=== PATIENT | female | born 1985 | race Caucasian/White ===

== ENCOUNTER 2021-12-21 10:04 | Emergency (ER) | payer SELFPAY ==
[2021-12-21 10:26] VITALS: O2SAT 96
--- NOTE | 2021-12-21 10:50 | XRAY ---
Indication: Right calf pain. Two-dimensional sonogram and color Doppler imaging of the major venous vessels of the right leg performed. Comparison: None No thrombus seen in the examined deep venous vessels of the right leg including greater saphenous vein. Veins demonstrate normal compressibility. Venous waveforms are normal with and without augmentation. Impression: Right leg negative for DVT.
--- NOTE | 2021-12-21 10:57 | ERPHSYRPT ---
- History of Present Illness Time Seen by Provider: 12/21/21 10:15 Source: patient Exam Limitations: no limitations Patient Subjective Stated Complaint: right lower leg pain with a hematoma to the back medial calf Triage Nursing Assessment: Pt c/o of right lower leg pain that has a hematoma to the back medial calf that pt noticed today but did notice stiffness yesterday, pt's mother has a hx of a blood clotting disorder and pt had a blood clot after a , pulses normal in right leg, rates pain asa 5/10, vitals wnl, denies any other issues at this time Physician History: Patient is a 36-year-old white female who presents with a complaint of a painful bruised appearing area and the proximal posterior leg on the right. She has a history of blood clots in 2018 following a . She was treated with L ovenox at that time. She denies any fever chills sweats etc. she denies any shortness of breath or pain Timing/Duration: today Activities at Onset: none Quality: throbbing Location: other (Right leg posterior calf) Severity of Pain-Max: mild Severity of Pain-Current: mild Nitro Today/Relief: no nitro taken today Aspirin Treatment Today: no aspirin today Allergies/Adverse Reactions: cefaclor [From Ceclor] Allergy (Verified 12/21/21 10:26) Home Medications: No Reportable Medications [No Reported Medications] 12/21/21 [History] Travel Risk - International Travel Have you traveled outside of the country in past 3 weeks: No - Coronavirus Screening Are you exhibiting any of the following symptoms?: No Close contact with a COVID-19 positive Pt in past 14-21 Days: No - Vaccine Status Have you recieved a Covid-19 vaccination: No - Review of Systems Constitutional: No Fever, No Chills Eyes: No Symptoms Ears, Nose, & Throat: No Symptoms Respiratory: No Cough, No Dyspnea Cardiac: No Chest Pain, No Edema, No Syncope Abdominal/Gastrointestinal: No Abdominal Pain, No Nausea, No Vomiting, No Diarrhea Genitourinary Symptoms: No Dysuria Musculoskeletal: No Back Pain, No Neck Pain Skin: Other (There is an ecchymotic area proximal right leg posteriorly which is tender does not feel warm there is no's sign of erythema), No Rash Neurological: No Dizziness, No Focal Weakness, No Sensory Changes Psychological: No Symptoms Endocrine: No Symptoms All Other Systems: Reviewed and Negative - Past Medical History Pertinent Past Medical History: Yes Cardiac History: Deep Vein Thrombosis Female Reproductive Disorders: No Pertinent History Other Medical History: pcos - Past Surgical History Past Surgical History: Yes Female Surgical History: Section - Social History Smoking Status: Never smoker Exposure to second hand smoke: No Drug Use: none Patient Lives Alone: No - Female History Hx Now: No - Nursing Vital Signs Nursing Vital Signs: Initial Vital Signs Temperature 97.9 F 12/21/21 10:09 Pulse Rate 83 12/21/21 10:09 Blood Pressure 131/107 12/21/21 10:09 O2 Sat by Pulse Oximetry 96 12/21/21 10:09 Pain Scale Pain Intensity 5 - Physical Exam General Appearance: no apparent distress, alert Eye Exam: PERRL/EOMI, eyes nml inspection Ears, Nose, Throat Exam: normal ENT inspection, moist mucous membranes Neck Exam: normal inspection, non-tender, supple Respiratory Exam: normal breath sounds, lungs clear, No respiratory distress Cardiovascular Exam: regular rate/rhythm, normal heart sounds, No edema Gastrointestinal/Abdomen Exam: soft, No tenderness, No mass Back Exam: normal inspection, No CVA tenderness, No vertebral tenderness Extremity Exam: limited range of motion, other (There is tenderness ecchymoses and swelling right leg proximal posterior area tenderness no erythema no heat), No phylicia's sign Neurologic Exam: alert, oriented x 3, cooperative, normal mood/affect, nml cerebellar function, sensation nml, No motor deficits Skin Exam: normal color, warm, dry Lymphatic Exam: No adenopathy SpO2: 96 - Course Nursing assessment & vital signs reviewed: Yes - Radiology Ultrasound Exam Venous Lower Extremity Ultrasound: Other (Doppler of the right lower extremity venous system showed no evidence of clot) Ordered Tests: Active Orders 24 hr Category Date Time Status VENOUS UNILAT/LIMITED EXTREMIT [US] Stat Exams 12/21/21 10:13 Completed CBC W DIFF Stat Lab 12/21/21 10:40 Completed CK-Creatinine Phosphokinase Stat Lab 12/21/21 10:40 Completed D-DIMER QUANTITATIVE Stat Lab 12/21/21 10:40 Completed PROTIME WITH INR Stat Lab 12/21/21 10:40 Completed PTT Stat Lab 12/21/21 10:40 Completed Lab/Rad Data: Laboratory Result Diagrams 12/21/21 10:40 Laboratory Results 12/21/21 12/21/21 12/21/21 Range/Units 10:40 10:40 10:40 WBC 7.9 (4.0-10.5) K/mm3 RBC 4.52 (4.1-5.4) M/mm3 Hgb 12.8 (12.0-16.0) gm/dl Hct 39.9 (35-47) % MCV 88.3 (78-100) fl MCH 28.3 (26-32) pg MCHC 32.1 (32-36) g/dl RDW 13.8 (11.5-14.0) % Plt Count 315 (150-450) K/mm3 MPV 8.8 (7.5-11.0) fl Gran % 60.6 (36.0-66.0) % Eos # (Auto) 0.43 (0-0.5) Absolute Lymphs (auto) 2.10 (1.0-4.6) Absolute Monos (auto) 0.54 (0.0-1.3) Lymphocytes % 26.7 (24.0-44.0) % Monocytes % 6.9 (0.0-12.0) % Eosinophils % 5.5 H (0.00-5.0) % Basophils % 0.3 (0.0-0.4) % Absolute Granulocytes 4.77 (1.4-6.9) Basophils # 0.02 (0-0.4) PT 11.8 (9.4-12.5) SECONDS INR 1.00 (0.8-3.0) APTT 25.5 (25.1-36.5) SECONDS D-Dimer 392 (215-500) ng/mL Creatine Kinase 48 (30-135) U/L - Progress Progress: unchanged Air Movement: good Blood Culture(s) Obtained: No Antibiotics given: No - Departure Departure Disposition: Home Clinical Impression: Hematoma Condition: Stable Critical Care Time: No Instructions: Contusion (DC)
[2021-12-21 11:01] LABS: Absolute Neutrophil Ct (ANC) 4.77 (1.4-6.9); Basophil (Absolute #) 0.02 (0-0.4); Eosinophil % 5.5 % (0.00-5.0); Eosinophil (Absolute #) 0.43 (0-0.5); Hematocrit 39.9 % (35-47); Hemoglobin 12.8 gm/dl (12.0-16.0); Lymphocytes % 26.7 % (24.0-44.0); Mean Cell Volume 88.3 fl (78-100); Mean Corpuscular Hemoglobin 28.3 pg (26-32); Mean Corpuscular Hgb Concent. 32.1 g/dl (32-36); Mean Platelet Volume 8.8 fl (7.5-11.0); Monocyte (Absolute #) 0.54 (0.0-1.3); Monocytes % 6.9 % (0.0-12.0); Neutrophil % 60.6 % (36.0-66.0); Platelet Count 315 K/mm3 (150-450); Red Blood Count 4.52 M/mm3 (4.1-5.4); Red Cell Distribution Width 13.8 % (11.5-14.0); White Blood Count 7.9 K/mm3 (4.0-10.5)
[2021-12-21 11:09] LABS: PROTIME 11.8 SECONDS (9.4-12.5)
[2021-12-21 11:10] VITALS: BP 117/61; PULSE 70
[2021-12-21 11:12] LABS: PTT 25.5 SECONDS (25.1-36.5)
== END 2021-12-21 11:34 | disposition home or self-care (01) ==
LOC: ED 10:04
DX: S80.11XA Contusion of right lower leg, initial encounter (principal); Z86.718 Personal history of other venous thrombosis and embolism
CPT/HCPCS: 36415; 82550; 85025; 85379; 85610; 85730; 93971; 99283

== ENCOUNTER 2022-01-28 08:04 | Emergency (ER) | payer MEDICAID ==
[2022-01-28] MEDS ORDERED: Sodium Chloride 0.9% 1000 ML 1,000 ML IV SCH (08:30)
[2022-01-28] MEDS ORDERED: Sodium Chloride 0.9% 1000 ML 1,000 ML ONE (08:35)
[2022-01-28 08:45] LABS: Appearance CLEAR (CLEAR); Bacteria RARE /HPF (NEGATIVE); Bilirubin NEGATIVE (NEGATIVE); Blood LARGE Ery/ul (0-5); Epithelial Cells RARE /HPF (FEW); Glucose NEGATIVE (NEGATIVE); Ketones NEGATIVE (NEGATIVE); Leukocyte Esterase TRACE (NEGATIVE); Nitrite NEGATIVE (NEGATIVE); Protein,Urine Dip NEGATIVE (Negative); Specific Gravity 1.002 (1.005-1.025); Urobilinogen NEGATIVE mg/dL (0-1)
[2022-01-28 08:47] LABS: Absolute Neutrophil Ct (ANC) 3.72 (1.4-6.9); Basophil (Absolute #) 0.02 (0-0.4); Eosinophil % 4.7 % (0.00-5.0); Eosinophil (Absolute #) 0.33 (0-0.5); Hematocrit 39.1 % (35-47); Hemoglobin 12.5 gm/dl (12.0-16.0); Lymphocytes % 31.4 % (24.0-44.0); Mean Cell Volume 87.3 fl (78-100); Mean Corpuscular Hemoglobin 27.9 pg (26-32); Mean Platelet Volume 8.9 fl (7.5-11.0); Monocyte (Absolute #) 0.73 (0.0-1.3); Monocytes % 10.4 % (0.0-12.0); Neutrophil % 53.2 % (36.0-66.0); Platelet Count 352 K/mm3 (150-450); Red Blood Count 4.48 M/mm3 (4.1-5.4); Red Cell Distribution Width 13.7 % (11.5-14.0)
[2022-01-28 08:47] LABS: INR 1.02 (0.8-3.0)
[2022-01-28] MEDS ORDERED: Ativan 2 MG/1 ML VIAL IV ONE (08:52)
[2022-01-28] MEDS ORDERED: Ativan 2 MG/1 ML VIAL ONE (08:53)
[2022-01-28 09:00] LABS: ALBUMIN 4.3 g/dL (3.5-5.0); ALKALINE PHOSPHATASE 94 U/L (38-126); AMYLASE 33 U/L (30-110); ANION GAP 12.7 MEQ/L (5-15); BLOOD UREA NITROGEN 14 mg/dL (7-17); CHLORIDE 107 mmol/L (98-107); Calcium 9.6 mg/dL (8.4-10.2); Carbon Dioxide 23 mmol/L (22-30); Creatinine 1 0.54 mg/dL (0.52-1.04); EST GLOMERULAR FILTRATION RATE > 60.0 ML/MIN; Glucose 78 mg/dL (74-106); LIPASE 175 U/L (23-300); MAGNESIUM 1.8 mg/dL (1.6-2.3); NT PRO BNP 56.7 pg/mL (0-450); Potassium 4.1 mmol/L (3.5-5.1); SGOT/AST 25 U/L (14-36); SGPT/ALT 21 U/L (0-35); SODIUM 138 mmol/L (137-145); Total Protein 7.3 g/dL (6.3-8.2)
--- NOTE | 2022-01-28 09:02 | ERPHSYRPT ---
- History of Present Illness Time Seen by Provider: 01/28/22 08:25 Historian: patient Exam Limitations: no limitations Patient Subjective Stated Complaint: Pt states "I started to have left arm pain on friday and now the pain is in my left chest and back." Triage Nursing Assessment: Pt presented extremely anxious, tachypneic, crying. PT ambulates with an upright steady gait, able to speak in clear full sentences pt was able to calm with guided imagery and breathing exercises. Physician History: Patient is a 36-year-old female who presents with a complaint of left-sided chest pain for a couple of days on and off. Pain radiates at times to the left arm left jaw anterior to the back. Is associated with some shortness of breath and nausea and she says she has been diaphoretic at times. She has risk factors which primarily involves her family. Apparently the females in the family have a high incidence of cerebrovascular and cardiac disease. The patient herself has polycystic ovary syndrome and insulin resistance. She does admit to a high degree of anxiety associated with her oldest son who is autistic she is a new single mother and she has recently had a promotion at her job. Timing/Duration: yesterday Activities at Onset: none Quality: stabbing Location: substernal Chest Pain Radiation: jaw, arm Severity of Pain-Max: severe Severity of Pain-Current: mild Modifying Factors: Improves With: breathing Associated Symptoms: nausea, shortness of breath, hurts to breathe, diaphoresis Prior Chest Pain/Cardiac Workup: no prior cardiac workup Nitro Today/Relief: no nitro taken today Aspirin Treatment Today: no aspirin today Allergies/Adverse Reactions: cefaclor [From Ceclor] Allergy (Verified 12/21/21 10:26) Hx Tetanus, Diphtheria Vaccination/Date Given: No Hx Influenza Vaccination/Date Given: No Hx Pneumococcal Vaccination/Date Given: No Immunizations Up to Date: Yes Travel Risk - International Travel Have you traveled outside of the country in past 3 weeks: No - Coronavirus Screening Are you exhibiting any of the following symptoms?: No Close contact with a COVID-19 positive Pt in past 14-21 Days: No - Vaccine Status Have you recieved a Covid-19 vaccination: No - Review of Systems Constitutional: No Fever, No Chills Eyes: No Symptoms Ears, Nose, & Throat: No Symptoms Respiratory: Dyspnea, No Cough Cardiac: Chest Pain, No Edema, No Syncope Abdominal/Gastrointestinal: Nausea, No Abdominal Pain, No Vomiting, No Diarrhea Genitourinary Symptoms: No Dysuria Musculoskeletal: No Back Pain, No Neck Pain Skin: No Rash Neurological: No Dizziness, No Focal Weakness, No Sensory Changes Psychological: No Symptoms Endocrine: No Symptoms All Other Systems: Reviewed and Negative - Past Medical History Pertinent Past Medical History: Yes Cardiac History: Deep Vein Thrombosis Female Reproductive Disorders: No Pertinent History Other Medical History: pcos - Past Surgical History Past Surgical History: Yes Female Surgical History: Section - Social History Smoking Status: Never smoker Exposure to second hand smoke: Yes Drug Use: none Patient Lives Alone: No - Female History Hx Last Menstrual Period: 01/28/2022 Hx Now: No - Nursing Vital Signs Nursing Vital Signs: Initial Vital Signs Temperature 98.0 F 01/28/22 08:21 Pulse Rate 83 01/28/22 08:21 Respiratory Rate 28 H 01/28/22 08:21 Blood Pressure 149/96 01/28/22 08:21 O2 Sat by Pulse Oximetry 100 01/28/22 08:21 Pain Scale Pain Intensity 0 - Physical Exam General Appearance: moderate distress (Anxiety) Eye Exam: PERRL/EOMI, eyes nml inspection Ears, Nose, Throat Exam: normal ENT inspection, moist mucous membranes Neck Exam: normal inspection, non-tender, supple, full range of motion Respiratory Exam: normal breath sounds, lungs clear, No respiratory distress Cardiovascular Exam: regular rate/rhythm, normal heart sounds Gastrointestinal/Abdomen Exam: soft, No tenderness, No mass Back Exam: normal inspection, No CVA tenderness, No vertebral tenderness Extremity Exam: normal inspection, normal range of motion Neurologic Exam: alert, oriented x 3, cooperative, normal mood/affect, sensation nml, other (Marked anxiety and hyperventilation), No motor deficits Skin Exam: normal color, warm, dry SpO2 Interpretation: normal SpO2: 100 O2 Delivery: Room Air - Course Nursing assessment & vital signs reviewed: Yes EKG Interpreted by Me: RATE (80), Sinus Rhythm, NORMAL AXIS, NORMAL INTERVALS, NORMAL QRS, NORMAL ST-T - Radiology Exams Chest X-ray Interpretation: Negative Ordered Tests: Active Orders 24 hr Category Date Time Status EKG-ER Only STAT Care 01/28/22 08:23 Active IV Insertion STAT Care 01/28/22 08:23 Active CHEST 1 VIEW (PORTABLE) Stat Exams 01/28/22 08:27 Completed AMYLASE Stat Lab 01/28/22 08:35 Completed CBC W DIFF Stat Lab 01/28/22 08:25 Completed CMP Stat Lab 01/28/22 08:35 Completed CULTURE,URINE Stat Lab 01/28/22 08:35 Received D-DIMER QUANTITATIVE Stat Lab 01/28/22 08:35 Completed LIPASE Stat Lab 01/28/22 08:35 Completed Lactic Acid Stat Lab 01/28/22 08:35 Completed MAGNESIUM Stat Lab 01/28/22 08:35 Completed NT PRO BNP Stat Lab 01/28/22 08:35 Completed PROTIME WITH INR Stat Lab 01/28/22 08:35 Completed TROPONIN Q3H Lab 01/28/22 08:35 Completed TROPONIN Q3H Lab 01/28/22 11:30 Ordered TROPONIN Q3H Lab 01/28/22 14:30 Ordered TROPONIN Q3H Lab 01/28/22 17:30 Ordered TROPONIN Q3H Lab 01/28/22 20:30 Ordered UA W/RFX UR CULTURE Stat Lab 01/28/22 08:35 Completed Medication Summary Generic Name Dose Route Start Last Admin Trade Name Freq PRN Reason Stop Dose Admin Sodium Chloride 1,000 mls @ 100 mls/hr 01/28/22 08:30 01/28/22 08:37 Sodium Chloride 0.9% 1000 Ml IV 02/27/22 08:29 100 mls/hr .Q10H STEFFANY Administration Discontinued Medications Generic Name Dose Route Start Last Admin Trade Name Freq PRN Reason Stop Dose Admin Lorazepam 1 mg 01/28/22 08:52 01/28/22 09:07 Lorazepam 2 Mg/1 Ml 2 Mg Vial IV 01/28/22 08:53 1 mg STAT ONE Administration Lorazepam Confirm 01/28/22 08:53 Lorazepam 2 Mg/1 Ml 2 Mg Vial Administered 01/28/22 08:54 Dose 2 mg .ROUTE .STK-MED ONE Lab/Rad Data: Laboratory Result Diagrams 01/28/22 08:25 01/28/22 08:35 Laboratory Results 01/28/22 01/28/22 01/28/22 Range/Units 08:35 08:35 08:35 WBC (4.0-10.5) K/mm3 RBC (4.1-5.4) M/mm3 Hgb (12.0-16.0) gm/dl Hct (35-47) % MCV (78-100) fl MCH (26-32) pg MCHC (32-36) g/dl RDW (11.5-14.0) % Plt Count (150-450) K/mm3 MPV (7.5-11.0) fl Gran % (36.0-66.0) % Eos # (Auto) (0-0.5) Absolute Lymphs (auto) (1.0-4.6) Absolute Monos (auto) (0.0-1.3) Lymphocytes % (24.0-44.0) % Monocytes % (0.0-12.0) % Eosinophils % (0.00-5.0) % Basophils % (0.0-0.4) % Absolute Granulocytes (1.4-6.9) Basophils # (0-0.4) PT 12.0 (9.4-12.5) SECONDS INR 1.02 (0.8-3.0) D-Dimer 249 (215-500) ng/mL Sodium (137-145) mmol/L Potassium (3.5-5.1) mmol/L Chloride (98-107) mmol/L Carbon Dioxide (22-30) mmol/L Anion Gap (5-15) MEQ/L BUN (7-17) mg/dL Creatinine (0.52-1.04) mg/dL Estimated GFR ML/MIN Glucose (74-106) mg/dL Lactic Acid (0.4-2.0) Calcium (8.4-10.2) mg/dL Magnesium (1.6-2.3) mg/dL Total Bilirubin (0.2-1.3) mg/dL AST (14-36) U/L ALT (0-35) U/L Alkaline Phosphatase (38-126) U/L Troponin I 0.014 (0.000-0.034) ng/mL NT-Pro-B Natriuret Pep (0-450) pg/mL Serum Total Protein (6.3-8.2) g/dL Albumin (3.5-5.0) g/dL Amylase (30-110) U/L Lipase (23-300) U/L Urine Color STRAW (YELLOW) Urine Appearance CLEAR (CLEAR) Urine pH 7.0 (5-6) Ur Specific Jay 1.002 (1.005-1.025) Urine Protein NEGATIVE (Negative) Urine Ketones NEGATIVE (NEGATIVE) Urine Blood LARGE (0-5) Jonathan/ul Urine Nitrite NEGATIVE (NEGATIVE) Urine Bilirubin NEGATIVE (NEGATIVE) Urine Urobilinogen NEGATIVE (0-1) mg/dL Ur Leukocyte Esterase TRACE (NEGATIVE) Urine WBC (Auto) NONE (0-5) /HPF Urine RBC (Auto) NONE (0-2) /HPF U Epithel Cells (Auto) RARE (FEW) /HPF Urine Bacteria (Auto) RARE (NEGATIVE) /HPF Urine Culture Reflexed YES (NO) Urine Glucose NEGATIVE (NEGATIVE) mg/dL 01/28/22 01/28/22 01/28/22 Range/Units 08:35 08:35 08:25 WBC 7.0 (4.0-10.5) K/mm3 RBC 4.48 (4.1-5.4) M/mm3 Hgb 12.5 (12.0-16.0) gm/dl Hct 39.1 (35-47) % MCV 87.3 (78-100) fl MCH 27.9 (26-32) pg MCHC 32.0 (32-36) g/dl RDW 13.7 (11.5-14.0) % Plt Count 352 (150-450) K/mm3 MPV 8.9 (7.5-11.0) fl Gran % 53.2 (36.0-66.0) % Eos # (Auto) 0.33 (0-0.5) Absolute Lymphs (auto) 2.20 (1.0-4.6) Absolute Monos (auto) 0.73 (0.0-1.3) Lymphocytes % 31.4 (24.0-44.0) % Monocytes % 10.4 (0.0-12.0) % Eosinophils % 4.7 (0.00-5.0) % Basophils % 0.3 (0.0-0.4) % Absolute Granulocytes 3.72 (1.4-6.9) Basophils # 0.02 (0-0.4) PT (9.4-12.5) SECONDS INR (0.8-3.0) D-Dimer (215-500) ng/mL Sodium 138 (137-145) mmol/L Potassium 4.1 (3.5-5.1) mmol/L Chloride 107 (98-107) mmol/L Carbon Dioxide 23 (22-30) mmol/L Anion Gap 12.7 (5-15) MEQ/L BUN 14 (7-17) mg/dL Creatinine 0.54 (0.52-1.04) mg/dL Estimated GFR > 60.0 ML/MIN Glucose 78 (74-106) mg/dL Lactic Acid 1.0 (0.4-2.0) Calcium 9.6 (8.4-10.2) mg/dL Magnesium 1.8 (1.6-2.3) mg/dL Total Bilirubin 0.50 (0.2-1.3) mg/dL AST 25 (14-36) U/L ALT 21 (0-35) U/L Alkaline Phosphatase 94 (38-126) U/L Troponin I (0.000-0.034) ng/mL NT-Pro-B Natriuret Pep 56.7 (0-450) pg/mL Serum Total Protein 7.3 (6.3-8.2) g/dL Albumin 4.3 (3.5-5.0) g/dL Amylase 33 (30-110) U/L Lipase 175 (23-300) U/L Urine Color (YELLOW) Urine Appearance (CLEAR) Urine pH (5-6) Ur Specific Jay (1.005-1.025) Urine Protein (Negative) Urine Ketones (NEGATIVE) Urine Blood (0-5) Jonathan/ul Urine Nitrite (NEGATIVE) Urine Bilirubin (NEGATIVE) Urine Urobilinogen (0-1) mg/dL Ur Leukocyte Esterase (NEGATIVE) Urine WBC (Auto) (0-5) /HPF Urine RBC (Auto) (0-2) /HPF U Epithel Cells (Auto) (FEW) /HPF Urine Bacteria (Auto) (NEGATIVE) /HPF Urine Culture Reflexed (NO) Urine Glucose (NEGATIVE) mg/dL - Progress Progress: improved Air Movement: good Blood Culture(s) Obtained: No Antibiotics given: No - Departure Departure Disposition: Home Clinical Impression: Anxiety Condition: Stable Critical Care Time: No Referrals: DOCTOR,NO FAMILY [Primary Care Provider] - Follow up/PCP as directed Instructions: Anxiety, Adult (DC) Prescriptions: ALPRAZolam 1 MG [Xanax 1 mg] 0.5 mg PO TID PRN 10 Days #30 tablet PRN Reason: Anxiety
--- NOTE | 2022-01-28 09:17 | XRAY ---
Indication: Chest pain. Comparison: None Portable apical lordotic chest demonstrates normal heart, lungs, and bony thorax with a few incidental tiny calcified granulomas.
[2022-01-28 10:09] VITALS: BP 118/80; PULSE 78
[2022-01-28 10:15] VITALS: O2SAT 100
== END 2022-01-28 10:25 | disposition home or self-care (01) ==
LOC: ED 08:04
DX: F41.9 Anxiety disorder, unspecified (principal); R07.89 Other chest pain; R06.02 Shortness of breath; R11.0 Nausea; Z63.6 Dependent relative needing care at home; Z56.1 Change of job; Z86.718 Personal history of other venous thrombosis and embolism; E28.2 Polycystic ovarian syndrome; Z79.899 Other long term (current) drug therapy
CPT/HCPCS: 36000; 36415; 71045; 80053; 81001; 82150; 83605; 83690; 83735; 83880; 84484; 85025; 85379; 85610; 87086; 93005; 96374; 99284; J2060

== ENCOUNTER 2022-10-06 09:32 | Emergency (ER) | payer OTHER ==
[2022-10-06 09:59] VITALS: BP 132/91; PULSE 78; O2SAT 96
[2022-10-06] MEDS ORDERED: Rocephin 1000 MG INJ IM ONE (10:01)
--- NOTE | 2022-10-06 10:06 | ERPHSYRPT ---
- History of Present Illness Time Seen by Provider: 10/06/22 10:02 Source: patient Exam Limitations: no limitations Patient Subjective Stated Complaint: Toothache Triage Nursing Assessment: Patient ambulated back to ED and transferred self to bed. Patient A+O X3. Patient's skin pink, warm and dry. Patient complains of right lower dental pain that started last night. Patient complains of pain 8/10. Right lower back tooth noted to be decayed with red and swollen gums. Physician History: Patient complains of right lower dental pain that started last night. Patient complains of pain 8/10. Right lower back tooth noted to be decayed with red and swollen gums. Timing/Duration: yesterday Severity: moderate Associated Symptoms: denies symptoms Allergies/Adverse Reactions: cefaclor [From [facility]] Allergy (Verified 10/06/22 09:50) Hx Tetanus, Diphtheria Vaccination/Date Given: No Hx Influenza Vaccination/Date Given: No Hx Pneumococcal Vaccination/Date Given: No Immunizations Up to Date: Yes Travel Risk - International Travel Have you traveled outside of the country in past 3 weeks: No - Coronavirus Screening Are you exhibiting any of the following symptoms?: No Close contact with a COVID-19 positive Pt in past 14-21 Days: No - Vaccine Status Have you recieved a Covid-19 vaccination: No - Review of Systems Constitutional: No Symptoms Eyes: No Symptoms Ears, Nose, & Throat: Loose Teeth Respiratory: No Symptoms Cardiac: No Symptoms Abdominal/Gastrointestinal: No Symptoms Genitourinary Symptoms: No Symptoms Musculoskeletal: No Symptoms Skin: No Symptoms Neurological: No Symptoms Psychological: No Symptoms Endocrine: No Symptoms Hematologic/Lymphatic: No Symptoms Immunological/Allergic: No Symptoms - Past Medical History Pertinent Past Medical History: Yes Cardiac History: Deep Vein Thrombosis Psycho-Social History: Anxiety Female Reproductive Disorders: No Pertinent History Other Medical History: pcos - Past Surgical History Past Surgical History: Yes Female Surgical History: Section - Social History Smoking Status: Never smoker Exposure to second hand smoke: No Drug Use: none Patient Lives Alone: No - Female History Hx Last Menstrual Period: last week Hx Now: No - Nursing Vital Signs Nursing Vital Signs: Initial Vital Signs Temperature 98.0 F 10/06/22 09:50 Pulse Rate 78 10/06/22 09:50 Respiratory Rate 18 10/06/22 09:50 Blood Pressure 132/91 10/06/22 09:50 O2 Sat by Pulse Oximetry 96 10/06/22 09:50 Pain Scale Pain Intensity 8 - Physical Exam General Appearance: no apparent distress Eye Exam: PERRL/EOMI Ears, Nose, Throat Exam: other (right lower molar abscess) Neck Exam: normal inspection Respiratory Exam: normal breath sounds Cardiovascular Exam: regular rate/rhythm Gastrointestinal/Abdomen Exam: soft SpO2: 96 - Course Nursing assessment & vital signs reviewed: Yes - Progress Progress: unchanged Counseled pt/family regarding: diagnosis, need for follow-up (with Dentist) - Departure Departure Disposition: Home Clinical Impression: Dental abscess Condition: Stable Critical Care Time: No Referrals: TACHO ROCK [Primary Care Provider] - Follow up/PCP as directed Instructions: Tooth Decay, Adult (DC), Tooth Abscess (DC) Additional Instructions: Discharge/Care Plan FADUMO CAMARA was seen on 10/06/22 in the Emergency Room. The patient was counseled regarding Diagnosis,Lab results, Imaging studies, need for follow up and when to return to the Emergency Room. Prescriptions given: Discharge Note I have spoken with the patient and/or caregivers. I have explained the patient's condition, diagnosis and treatment plan based on the information available to me at this time. I have answered the patient's and/or caregiver's questions and addressed any concerns. The patient and/or caregivers have as good understanding of the patient's diagnosis, condition and treatment plan as can be expected at this point. The vital signs have been stable. The patient's condition is stable and appropriate for discharge from the emergency department. The patient will pursue further outpatient evaluation with the primary care physician or other designated or consulting physician as outlined in the discharge instructions. The patient and/or caregivers are agreeable to this plan of care and follow-up instructions have been explained in detail. The patient and/or caregivers have received these instruction. The patient/and or caregivers are aware that any significant change in condition or worsening of symptoms should prompt an immediate return to this or the closest emergency department or call 911. Prescriptions: Doxycycline Hyclate 100 mg [Vibramycin 100 MG] 100 mg PO BID #15 tab
== END 2022-10-06 10:26 | disposition home or self-care (01) ==
LOC: ED 09:32
DX: K04.7 Periapical abscess without sinus (principal); K08.89 Other specified disorders of teeth and supporting structures; Z28.310 Unvaccinated for COVID-19
CPT/HCPCS: 99281

== ENCOUNTER 2022-12-09 09:30 | Emergency (ER) | payer OTHER ==
--- NOTE | 2022-12-09 09:35 | ERPHSYRPT ---
- History of Present Illness Time Seen by Provider: 12/09/22 09:35 Historian: patient Exam Limitations: no limitations Physician History: This is an obese 37-year-old white female patient of Dr. Wilson, business services manager, and nurse practitioner [place] and presents with left anterior chest pain. The chest pain is described as sharp and radiates to the inner aspect of her left axilla and up her left neck. Patient has a history of DVT in the past and is not on any anticoagulation therapy. She has no diagnosed coronary artery disease. Patient is not short of breath. She has no abdominal pain. She denies cough Timing/Duration: yesterday Activities at Onset: none Quality: sharpness, stabbing Location: other (Left anterior chest) Chest Pain Radiation: neck (Left side) Severity of Pain-Max: moderate Severity of Pain-Current: mild Modifying Factors: Improves With: nothing Associated Symptoms: denies symptoms Nitro Today/Relief: no nitro taken today Aspirin Treatment Today: no aspirin today Allergies/Adverse Reactions: cefaclor [From Ceclor] Allergy (Verified 12/09/22 09:42) Home Medications: Spironolactone 25 mg [Aldactone 25 MG] 25 mg PO DAILY 12/09/22 [History] Hx Tetanus, Diphtheria Vaccination/Date Given: No Hx Influenza Vaccination/Date Given: No Hx Pneumococcal Vaccination/Date Given: No Travel Risk - International Travel Have you traveled outside of the country in past 3 weeks: No - Coronavirus Screening Are you exhibiting any of the following symptoms?: No Close contact with a COVID-19 positive Pt in past 14-21 Days: No - Vaccine Status Have you recieved a Covid-19 vaccination: No - Review of Systems Constitutional: No Symptoms Eyes: No Symptoms Ears, Nose, & Throat: No Symptoms Respiratory: No Symptoms Cardiac: Chest Pain Abdominal/Gastrointestinal: No Symptoms Genitourinary Symptoms: No Symptoms Musculoskeletal: No Symptoms Skin: No Symptoms Neurological: No Symptoms Psychological: No Symptoms Endocrine: No Symptoms Hematologic/Lymphatic: No Symptoms Immunological/Allergic: No Symptoms All Other Systems: Reviewed and Negative - Past Medical History Pertinent Past Medical History: Yes Cardiac History: Deep Vein Thrombosis Psycho-Social History: Anxiety Female Reproductive Disorders: No Pertinent History Other Medical History: pcos - Past Surgical History Past Surgical History: Yes Female Surgical History: Section - Social History Smoking Status: Never smoker Exposure to second hand smoke: No Drug Use: none Patient Lives Alone: No - Nursing Vital Signs Nursing Vital Signs: Initial Vital Signs Temperature 97.0 F 12/09/22 09:36 Pulse Rate 68 12/09/22 09:36 Respiratory Rate 18 12/09/22 09:36 Blood Pressure 118/71 12/09/22 09:36 O2 Sat by Pulse Oximetry 98 12/09/22 09:36 Pain Scale Pain Intensity 6 - Physical Exam General Appearance: no apparent distress, alert, anxiety, obese Eye Exam: PERRL/EOMI, eyes nml inspection Ears, Nose, Throat Exam: normal ENT inspection, moist mucous membranes Neck Exam: normal inspection, non-tender, supple, full range of motion Respiratory Exam: normal breath sounds, chest tenderness, lungs clear, airway intact, No respiratory distress Cardiovascular Exam: regular rate/rhythm, normal heart sounds, normal peripheral pulses Gastrointestinal/Abdomen Exam: soft, normal bowel sounds, No tenderness Pelvic Exam: not done Rectal Exam: not done Back Exam: normal inspection, normal range of motion, No CVA tenderness, No vertebral tenderness Extremity Exam: normal inspection, normal range of motion, pelvis stable Neurologic Exam: alert, oriented x 3, cooperative, packing machine can feeder II-XII nml as tested, normal mood/affect, nml cerebellar function, nml station & gait, sensation nml Skin Exam: normal color, warm, dry Lymphatic Exam: No adenopathy SpO2 Interpretation: normal O2 Delivery: Room Air - Course Nursing assessment & vital signs reviewed: Yes Ordered Tests: Active Orders 24 hr Category Date Time Status EKG-ER Only STAT Care 12/09/22 09:35 Active IV Insertion STAT Care 12/09/22 09:35 Active Pulse Oximetry (ED) STAT Care 12/09/22 09:35 Active CHEST 1 VIEW (PORTABLE) Stat Exams 12/09/22 09:36 Completed CBC W DIFF Stat Lab 12/09/22 10:04 Completed CMP Stat Lab 12/09/22 10:04 Completed D-DIMER QUANTITATIVE Stat Lab 12/09/22 10:04 Completed HCG QUALITATIVE,SERUM Stat Lab 12/09/22 10:00 Completed TROPONIN Q4H Lab 12/09/22 10:04 Completed TROPONIN Q4H Lab 12/09/22 13:45 Ordered TROPONIN Q4H Lab 12/09/22 17:45 Ordered Lab/Rad Data: Laboratory Result Diagrams 12/09/22 10:04 12/09/22 10:04 Laboratory Results 12/09/22 12/09/22 12/09/22 Range/Units 10:04 10:04 10:04 WBC (4.0-10.5) x10^3/uL RBC (4.1-5.4) x10^6/uL Hgb (12.0-16.0) g/dL Hct (35-47) % MCV (78-100) fL MCH (26-32) pg MCHC (32-36) g/dL RDW (11.5-14.0) % Plt Count (150-450) x10^3/uL MPV (7.5-11.0) fL Gran % (36.0-66.0) % Immature Gran % (Auto) (0.00-0.4) % Nucleat RBC Rel Count (0.00-0.1) % Eos # (Auto) (0-0.5) x10^3/uL Immature Gran # (Auto) (0.00-0.03) x10^3u/L Absolute Lymphs (auto) (1.0-4.6) x10^3/uL Absolute Monos (auto) (0.0-1.3) x10^3/uL Absolute Nucleated RBC (0.00-0.01) x10^3u/L Lymphocytes % (24.0-44.0) % Monocytes % (0.0-12.0) % Eosinophils % (0.00-5.0) % Basophils % (0.0-0.4) % Absolute Granulocytes (1.4-6.9) x10^3/uL Basophils # (0-0.4) x10^3/uL D-Dimer < 0.19 (0.0-0.50) mg/L Sodium 134 L (137-145) mmol/L Potassium 4.3 (3.5-5.1) mmol/L Chloride 106 (98-107) mmol/L Carbon Dioxide 22 (22-30) mmol/L Anion Gap 10.6 (5-15) MEQ/L BUN 9 (7-17) mg/dL Creatinine 0.48 L (0.52-1.04) mg/dL Estimated GFR > 60.0 ML/MIN Glucose 114 H (74-106) mg/dL Calcium 9.0 (8.4-10.2) mg/dL Total Bilirubin 0.50 (0.2-1.3) mg/dL AST 26 (14-36) U/L ALT 27 (0-35) U/L Alkaline Phosphatase 89 (38-126) U/L Troponin I < 0.012 (0.000-0.034) ng/mL Serum Total Protein 7.5 (6.3-8.2) g/dL Albumin 4.2 (3.5-5.0) g/dL Serum , Qual (Negative) 12/09/22 12/09/22 Range/Units 10:04 10:00 WBC 6.8 (4.0-10.5) x10^3/uL RBC 4.72 (4.1-5.4) x10^6/uL Hgb 13.2 (12.0-16.0) g/dL Hct 41.2 (35-47) % MCV 87.3 (78-100) fL MCH 28.0 (26-32) pg MCHC 32.0 (32-36) g/dL RDW 13.3 (11.5-14.0) % Plt Count 325 (150-450) x10^3/uL MPV 8.8 (7.5-11.0) fL Gran % 59.0 (36.0-66.0) % Immature Gran % (Auto) 0.1 (0.00-0.4) % Nucleat RBC Rel Count 0.0 (0.00-0.1) % Eos # (Auto) 0.31 (0-0.5) x10^3/uL Immature Gran # (Auto) 0.01 (0.00-0.03) x10^3u/L Absolute Lymphs (auto) 1.76 (1.0-4.6) x10^3/uL Absolute Monos (auto) 0.66 (0.0-1.3) x10^3/uL Absolute Nucleated RBC 0.00 (0.00-0.01) x10^3u/L Lymphocytes % 26.0 (24.0-44.0) % Monocytes % 9.7 (0.0-12.0) % Eosinophils % 4.6 (0.00-5.0) % Basophils % 0.6 (0.0-0.4) % Absolute Granulocytes 3.99 (1.4-6.9) x10^3/uL Basophils # 0.04 (0-0.4) x10^3/uL D-Dimer (0.0-0.50) mg/L Sodium (137-145) mmol/L Potassium (3.5-5.1) mmol/L Chloride (98-107) mmol/L Carbon Dioxide (22-30) mmol/L Anion Gap (5-15) MEQ/L BUN (7-17) mg/dL Creatinine (0.52-1.04) mg/dL Estimated GFR ML/MIN Glucose (74-106) mg/dL Calcium (8.4-10.2) mg/dL Total Bilirubin (0.2-1.3) mg/dL AST (14-36) U/L ALT (0-35) U/L Alkaline Phosphatase (38-126) U/L Troponin I (0.000-0.034) ng/mL Serum Total Protein (6.3-8.2) g/dL Albumin (3.5-5.0) g/dL Serum , Qual NEGATIVE (Negative) - Progress Progress: improved Air Movement: good Progress Note: 12/09/22 11:00 Chest x-ray shows no acute cardiopulmonary process. Blood Culture(s) Obtained: No Antibiotics given: No Counseled pt/family regarding: lab results, diagnosis, need for follow-up, rad results - Departure Departure Disposition: Home Clinical Impression: Non-cardiac chest pain Condition: Stable Critical Care Time: No Referrals: CHRISTIAN ALVARADO NP [Primary Care Provider] - Follow up/PCP as directed Additional Instructions: Continue your medication as prescribed. Call your business services manager and primary care provider to make appointments for further evaluation management.
[2022-12-09 10:20] LABS: Absolute Neutrophil Ct (ANC) 3.99 x10^3/uL (1.4-6.9); BASOPHIL % 0.6 % (0.0-0.4); Basophil (Absolute #) 0.04 x10^3/uL (0-0.4); Eosinophil % 4.6 % (0.00-5.0); Eosinophil (Absolute #) 0.31 x10^3/uL (0-0.5); Hematocrit 41.2 % (35-47); Hemoglobin 13.2 g/dL (12.0-16.0); IMMATURE GRAN # 0.01 x10^3u/L (0.00-0.03); IMMATURE GRAN % 0.1 % (0.00-0.4); Lymphocyte (Absolute #) 1.76 x10^3/uL (1.0-4.6); Mean Cell Volume 87.3 fL (78-100); Mean Platelet Volume 8.8 fL (7.5-11.0); Monocyte (Absolute #) 0.66 x10^3/uL (0.0-1.3); Monocytes % 9.7 % (0.0-12.0); Platelet Count 325 x10^3/uL (150-450); Red Blood Count 4.72 x10^6/uL (4.1-5.4); Red Cell Distribution Width 13.3 % (11.5-14.0); White Blood Count 6.8 x10^3/uL (4.0-10.5)
[2022-12-09 10:34] LABS: ALBUMIN 4.2 g/dL (3.5-5.0); ALKALINE PHOSPHATASE 89 U/L (38-126); ANION GAP 10.6 MEQ/L (5-15); BLOOD UREA NITROGEN 9 mg/dL (7-17); CHLORIDE 106 mmol/L (98-107); Carbon Dioxide 22 mmol/L (22-30); Creatinine 1 0.48 mg/dL (0.52-1.04); EST GLOMERULAR FILTRATION RATE > 60.0 ML/MIN; Glucose 114 mg/dL (74-106); Potassium 4.3 mmol/L (3.5-5.1); SGOT/AST 26 U/L (14-36); SGPT/ALT 27 U/L (0-35); SODIUM 134 mmol/L (137-145); Total Protein 7.5 g/dL (6.3-8.2)
--- NOTE | 2022-12-09 10:59 | XRAY ---
Indication: Anterior chest pain. Comparison: January 28, 2022 Portable chest again demonstrates normal heart, lungs, and bony thorax with incidental tiny calcified granulomas.
[2022-12-09 11:19] VITALS: BP 105/71; PULSE 67; O2SAT 97
== END 2022-12-09 11:20 | disposition home or self-care (01) ==
LOC: ED 09:30
DX: R07.89 Other chest pain (principal); Z79.899 Other long term (current) drug therapy; Z28.310 Unvaccinated for COVID-19; Z86.718 Personal history of other venous thrombosis and embolism
CPT/HCPCS: 36415; 71045; 80053; 84484; 84703; 85025; 85379; 93005; 93041; 94760; 99284

== ENCOUNTER 2022-12-22 08:36 | Emergency (ER) | payer OTHER ==
--- NOTE | 2022-12-22 10:12 | ERPHSYRPT ---
- History of Present Illness Source: patient Exam Limitations: no limitations Patient Subjective Stated Complaint: pt here for headache today with a sore throat that is getting better, Triage Nursing Assessment: pt alert, resp easy, no cough, skin w/d/p. no edema noted Physician History: 37 yo WF w frontal headache x 1-2 days. Pt's children in ER for URI symptoms. She denies fever/cough/coryza/N/V/D/Dysuria/hematuria. Timing/Duration: abrupt onset Severity: mild Prearrival Treatment: no prearrival treatment Associated Symptoms: denies symptoms, headache Allergies/Adverse Reactions: cefaclor [From StemCells] Allergy (Verified 12/22/22 09:00) Home Medications: Spironolactone 25 mg [Aldactone 25 MG] 25 mg PO DAILY 12/09/22 [History] Hx Tetanus, Diphtheria Vaccination/Date Given: No Hx Influenza Vaccination/Date Given: No Hx Pneumococcal Vaccination/Date Given: No Immunizations Up to Date: Yes Travel Risk - International Travel Have you traveled outside of the country in past 3 weeks: No - Coronavirus Screening Are you exhibiting any of the following symptoms?: Yes Symptoms: Headaches/Body Aches/Fatigue Close contact with a COVID-19 positive Pt in past 14-21 Days: No - Vaccine Status Have you recieved a Covid-19 vaccination: No - Review of Systems Constitutional: No Symptoms, Malaise Eyes: No Symptoms Ears, Nose, & Throat: No Symptoms Respiratory: No Symptoms Cardiac: No Symptoms Abdominal/Gastrointestinal: No Symptoms Genitourinary Symptoms: No Symptoms Musculoskeletal: No Symptoms, Myalgias Skin: No Symptoms Neurological: No Symptoms, Headache Psychological: No Symptoms Endocrine: No Symptoms Hematologic/Lymphatic: No Symptoms Immunological/Allergic: No Symptoms - Past Medical History Pertinent Past Medical History: Yes Cardiac History: Deep Vein Thrombosis Psycho-Social History: Anxiety Female Reproductive Disorders: No Pertinent History Other Medical History: pcos,possible heart problem - Past Surgical History Past Surgical History: Yes Female Surgical History: Section - Social History Smoking Status: Never smoker Exposure to second hand smoke: No Drug Use: none Patient Lives Alone: No - Female History Hx Last Menstrual Period: now Hx Now: No - Nursing Vital Signs Nursing Vital Signs: Initial Vital Signs Temperature 97.4 F 12/22/22 09:10 Pulse Rate 86 12/22/22 09:10 Respiratory Rate 18 12/22/22 09:10 Blood Pressure 119/73 12/22/22 09:10 O2 Sat by Pulse Oximetry 98 12/22/22 09:10 Pain Scale Pain Intensity 0 WNL - Physical Exam General Appearance: no apparent distress Eye Exam: bilateral eye: normal inspection, PERRL, EOMI Ear Exam: bilateral ear: auricle normal, canal normal, TM normal Nasal Exam: normal inspection Throat Exam: normal, pharynx normal Neck Exam: normal inspection, non-tender, supple, full range of motion, trachea midline, No lymphadenopathy (R), No lymphadenopathy (L), No stiff neck, No Brudzinski's sign, No carotid bruit, No Kernig's sign, No meningismus Cardiovascular/Respiratory Exam: normal breath sounds, regular rate/rhythm, heart sounds normal, no respiratory distress Abdominal Exam: non-tender, soft Neurologic Exam: alert, oriented x 3, cooperative, size painter II-XII nml as tested, normal mood/affect, nml cerebellar function, nml station & gait, sensation nml, No motor deficits, No sensory deficit Skin Exam: normal color, warm, dry SpO2 Interpretation: normal SpO2: 98 O2 Delivery: Room Air Lab/Rad Data: Laboratory Results 12/22/22 12/22/22 Range/Units 10:00 09:13 Influenza Type A Ag NEGATIVE (NEGATIVE) Influenza Type B Ag NEGATIVE (NEGATIVE) RSV (PCR) NEGATIVE (Negative) SARS-CoV-2 (PCR) NEGATIVE (NEGATIVE) Group A Strep Antibody NOT DETECTED (NEGATIVE) - Progress Progress Note: 12/22/22 11:03 Nursing note and vital signs reviewed Labs reviewed and shared w pt No food or housing insecurities noted Pt wo focal weakness or nuchal rigidity on serial exams No evidence of meningitis or viral illness during stay Pt refused all pain meds during stay Counseled pt/family regarding: lab results, diagnosis, need for follow-up - Departure Departure Disposition: Home Clinical Impression: Headache Condition: Stable Critical Care Time: No Referrals: CHRISTIAN ALVARADO NP [Primary Care Provider] - Follow up/PCP as directed Instructions: Headache, Adult (DC) Additional Instructions: Motrin/Tylenol for pain Return to ER for worsening pain, temperature greater than 100.5, or worsening headache
[2022-12-22 10:42] LABS: INFLUENZA A NEGATIVE (NEGATIVE); INFLUENZA B NEGATIVE (NEGATIVE); RESPIRATORY SYNCTIAL VIRUS NEGATIVE (Negative); SARS-CoV-2 Xpert Express NEGATIVE (NEGATIVE)
[2022-12-22 11:58] VITALS: BP 111/67; PULSE 68; O2SAT 100
== END 2022-12-22 11:58 | disposition home or self-care (01) ==
LOC: ED 08:36
DX: R51.9 Headache, unspecified (principal); Z79.899 Other long term (current) drug therapy; Z28.310 Unvaccinated for COVID-19
CPT/HCPCS: 0241U; 87651; 99282